=== PATIENT | male | born 1960 | race Caucasian/White ===

== ENCOUNTER 2019-06-13 16:27 | Inpatient (IN) ==
[2019-06-13] MEDS ORDERED: HYDROmorphone INJ 1 MG/ML SYRINGE IV STA (17:03)
[2019-06-13] MEDS ORDERED: SODIUM CHLORIDE 0.9% 1000ML 1,000 ML IV ONE (17:03)
[2019-06-13] MEDS ORDERED: PROMETHAZINE 25 MG/51 ML BAG IV STA (17:03)
[2019-06-13 17:15] LABS: Basophils # (auto) 0.01 K/uL (0-0.2); Basophils % (auto) 0.1 %; Eosinophils # (auto) 0.02 K/uL (0-0.5); Eosinophils % (auto) 0.2 %; Hematocrit (blood only) 45.4 % (42-52); Hemoglobin 16.5 g/dL (14.0-18.0); Immature Granulocytes # (auto) 0.04 K/uL (0.00-0.02); Immature Granulocytes % (auto) 0.3 %; Lymphocytes # (auto) 0.74 K/uL (1.2-3.4); Lymphocytes % (auto) 5.8 %; Mean Corpuscular Hgb Conc 36.3 g/dL (32-36); Mean Corpuscular Volume 96.2 fL (80-100); Mean Platelet Volume 9.5 fL (7.4-10.4); Monocytes # (auto) 0.83 K/uL (0.11-0.59); Monocytes % (auto) 6.5 %; Neutrophils # (auto) 11.09 K/uL (1.4-6.5); Neutrophils % (auto) 87.1 %; Platelet Count 133 K/uL (130-400); RDW Coefficient of Variation 12.7 % (11.5-14.5); RDW Standard Deviation 44.3 fL (36.4-46.3); Red Blood Count 4.72 M/uL (4.7-6.1); White Blood Count 12.73 K/uL (4.8-10.8)
[2019-06-13 17:31] LABS: Albumin Level 4.3 gm/dl (3.4-5.0); BUN Creatinine Ratio 6.2 (10-20); Calcium 9.5 mg/dl (8.5-10.1); Creatinine Clr Calc Pharmacy 66.6 ml/min; Est GFR (African American) 56.3; Est GFR (Non-African American) 48.6; Magnesium 2.1 mg/dl (1.8-2.4); Potassium 3.4 mmol/L (3.5-5.1)
--- NOTE | 2019-06-13 17:33 | XRay Report ---
XR KUB/Abdomen 1 view CLINICAL HISTORY: RLQ pain n/v COMPARISON STUDY: No previous studies for comparison. FINDINGS: Postsurgical changes are present within the right upper quadrant. There is a nonspecific svetlana wel gas pattern with a fluid-filled mildly dilated left upper quadrant small bowel loop. There is equ ivocal mucosal edema at the level of the hepatic flexure. IMPRESSION: 1. Nonspecific bowel gas pattern 2. Dilated fluid-filled left upper quadrant small bowel loop 3. Equivocal mucosal edema within the colon at the level of the hepatic flexure Electronically signed by: Darrick Viera M.D. 06/13/2019 5:32 PM
[2019-06-13 17:34] LABS: Bilirubin,Total 1.3 mg/dl (0.2-1); Globulin 4.1 gm/dl (2.5-4.0); Total Protein 8.4 gm/dl (6.4-8.2)
--- NOTE | 2019-06-13 17:44 | Emergency Department Note ---
History of Present Illness General Chief Complaint: Abdominal Pain Stated Complaint: ABD PAIN, UNABLE TO HAVE BM History of Present Illness Maximum Pain Intensity: 4 This patient is a 58-year-old male presents to the emergency department complaining of a dull, aching abdominal pain for the last 2 days. He is also had nausea with several episodes of vomiting. His last bowel movement was loose and this morning. The patient has a history of carcinoid syndrome. He has had multiple surgeries on his abdomen. The patient also reports metastatic disease to the bone. He tried taking Dilaudid for the pain and Zofran for the nausea at home with no relief. The patient's oncology care is at [facility]. He is visiting to the area. Home Medications Home Medications Medication Instructions Recorded Confirmed Type Unknown Chemo Drugs 1 dose INJ DIRECTED 06/13/19 06/13/19 History alprazolam 1 mg PO HS PRN 06/13/19 06/13/19 History amlodipine 5 mg PO BID 06/13/19 06/13/19 History hydromorphone 4 mg PO Q6H PRN 06/13/19 06/13/19 History methylphenidate HCl 5 mg PO BID 06/13/19 06/13/19 History metoprolol tartrate 100 mg PO BID 06/13/19 06/13/19 History morphine 15 mg PO Q12H PRN 06/13/19 06/13/19 History ondansetron HCl [Zofran] 8 mg PO TID PRN 06/13/19 06/13/19 History pantoprazole 40 mg PO DAILY 06/13/19 06/13/19 History sertraline 100 mg PO DAILY 06/13/19 06/13/19 History Allergies Allergy/AdvReac Type Severity Reaction Status Date / Time hydrocodone Allergy Mild ITCHY Verified 06/13/19 17:29 AROUND NOSE Past Med/Surg History Social History Preferred Language: Nepali Feels Safe at Home: Yes Smoking Status: Former smoker Review of Systems A total of 10 systems reviewed and were otherwise negative Physical Exam Vital Signs: Vital Signs - 24 hr 06/13/19 16:35 06/13/19 18:23 06/13/19 19:00 Temperature 37.0 C Temperature Source Oral Pulse Rate 122 H 82 Pulse Rate [Apical ] 86 Pulse Rate from Sp O2 Sensor 83 Respiratory Rate 20 18 19 Respiratory Effort / Characteristics Non-Labored Non-Labored Respiratory Depth Normal Normal Blood Pressure 170/121 H 142/89 H Blood Pressure [Ri ght Arm] 127/87 Blood Pressure Christiane n 137 104 Blood Pressure Christiane n [Right Arm] 100 Blood Pressure Pos ition Sitting Pulse Oximetry 95 93 94 Oxygen Delivery Me thod Room Air Room Air Room Air Sepsis Recent Feve r Within 48 Hours No Sepsis New/Unexpla ined Change in Men edward Status No Sepsis Action Take n by Nursing No Action Required Constitutional: WD/WN, vitals as above Eyes: EOM intact bilaterally ENMT: Oral mucosa dry Neck: trachea midline Respiratory: normal respiratory effort, lungs clear to auscultation Cardiovascular: RRR, no murmur, no edema Gastrointestinal (Abdomen): Abdomen is soft. Bowel sounds hypoactive. Tenderness to palpation in the right lower quadrant. No guarding or rebound Tenderness Musculoskeletal: no cyanosis or clubbing, extremities motor strength 5/5 Skin: no rashes, warm and dry Neurologic: Alert and oriented x3. No focal motor deficits. Psychiatric: Acting appropriately Course Patient was seen and examined Vital signs including blood pressure were reviewed medications list was verified with patient Labs were obtained, and a saline lock was established The patient was ordered Dilaudid and Phenergan IV. He was also ordered IV fluids. Imaging was performed and reviewed Upon reevaluation, the patient was feeling better. We discussed his results. He voiced understanding. We discussed the plan. The case was discussed with general surgery in addition to the hospitalist service. They kindly agreed to evaluate the patient for likely inpatient management. The patient remained stable in the emergency department. Consultations Consultation #1: Dr. Gardiner Consultation #2: Dr. Castañeda Administered Medications Ioversol (Optiray 320 100ml) 93 ml IV ONCE PRN PRN Reason: Interaction Checking Stop: 06/17/19 19:37 Last Admin: 06/13/19 19:38 Dose: 93 ml Documented by: [id number] Discontinued Medications Hydromorphone HCl (Dilaudid) 1 mg IV NOW STA Stop: 06/13/19 17:04 Last Admin: 06/13/19 17:28 Dose: 1 mg Documented by: [id number] Promethazine HCl (Phenergan) 25 mg in 51 mls @ 204 mls/hr IV NOW STA Stop: 12/01/19 17:17 Last Infusion: 06/13/19 17:42 Dose: 0 mls/hr Documented by: [id number] Admin: 06/13/19 17:27 Dose: 204 mls/hr Documented by: [id number] Sodium Chloride (Nss 1000ml) 1,000 mls @ 999 mls/hr IV .Q1H1M ONE Stop: 06/13/19 18:03 Last Infusion: 06/13/19 18:28 Dose: 0 mls/hr Documented by: [id number] Admin: 06/13/19 17:27 Dose: 999 mls/hr Documented by: [id number] Medical Decision Making Differential Diagnosis Differential diagnosis: Acute on chronic pain, mass, bowel obstruction, infectious etiology, ureteral stone, among others Medical Records Attestation: I reviewed the patient's medical records. Home Medications Current Medication List: was personally reviewed by me Laboratory Data Attestation: I reviewed the patient's lab results. Result diagrams: 06/13/19 16:55 06/13/19 16:55 Lab Results 06/13/19 06/13/19 06/13/19 Range/Units 16:55 16:55 19:45 WBC 12.73 H (4.8-10.8) K/uL RBC 4.72 (4.7-6.1) M/uL Hgb 16.5 (14.0-18.0) g/dL Hct 45.4 (42-52) % MCV 96.2 (80-100) fL MCH 35.0 H (25-34) pg MCHC 36.3 H (32-36) g/dL RDW Std Deviation 44.3 (36.4-46.3) fL RDW Coeff of Alayna 12.7 (11.5-14.5) % Plt Count 133 (130-400) K/uL MPV 9.5 (7.4-10.4) fL Immature Gran % (Auto) 0.3 % Neut % (Auto) 87.1 % Lymph % (Auto) 5.8 % [place] % (Auto) 6.5 % Eos % (Auto) 0.2 % Baso % (Auto) 0.1 % Immature Gran # (Auto) 0.04 H (0.00-0.02) K/uL Neut # (Auto) 11.09 H (1.4-6.5) K/uL Lymph # (Auto) 0.74 L (1.2-3.4) K/uL [place] # (Auto) 0.83 H (0.11-0.59) K/uL Eos # (Auto) 0.02 (0-0.5) K/uL Baso # (Auto) 0.01 (0-0.2) K/uL Sodium 134 L (136-145) mmol/L Potassium 3.4 L (3.5-5.1) mmol/L Chloride 95 L (98-107) mmol/L Carbon Dioxide 27 (21-32) mmol/L Anion Gap 12.0 H (3-11) BUN 10 (7-18) mg/dl Creatinine 1.56 H (0.6-1.4) mg/dl Est Cr Clr Drug Dosing 66.6 ml/min Est GFR ( Amer) 56.3 Est GFR (Non-Af Amer) 48.6 BUN/Creatinine Ratio 6.2 L (10-20) Glucose 203 H (70-99) mg/dl Calcium 9.5 (8.5-10.1) mg/dl Magnesium 2.1 (1.8-2.4) mg/dl Total Bilirubin 1.3 H (0.2-1) mg/dl AST 51 H (15-37) U/L ALT 55 (12-78) U/L Alkaline Phosphatase 80 (45-117) U/L Total Protein 8.4 H (6.4-8.2) gm/dl Albumin 4.3 (3.4-5.0) gm/dl Globulin 4.1 H (2.5-4.0) gm/dl Albumin/Globulin Ratio 1.0 (0.9-2) Lipase 34 L (73-393) U/L Urine Color Dark Yellow Urine Appearance Clear (Clear) Urine pH 6.5 (4.5-7.5) Ur Specific [place] 1.015 (1.000-1.030) Urine Protein 1+ H (Negative) Urine Glucose (UA) Negative (Negative) Urine Ketones Negative (Negative) Urine Blood Negative (Negative) Urine Nitrite Negative (Negative) Urine Bilirubin Negative (Negative) Urine Urobilinogen Negative (Negative) Ur Leukocyte Esterase Trace H (Negative) Urine WBC (Auto) 5-10 H (0-5) /hpf Urine RBC (Auto) 0-4 (0-4) /hpf U Hyaline Cast (Auto) 10-30 H (0-5) /lpf U Epithel Cells (Auto) 20-30 H (0-5) /lpf Urine Bacteria (Auto) Negative (Negative) Imaging Data Attestation: I personally reviewed and interpreted this imaging study as follows: Radiologist's Impression: CT abdomen and pelvis with IV and oral contrast IMPRESSION: 1. Postsurgical changes of a right hemicolectomy with ileocolonic anastomosis 2. Small bowel obstructive pattern with a transition zone near at the level of the ileocolonic anastomosis. At this level, there is mild mesenteric nodularity with tethering of bowel loops. 3. Low volume ascites 4. No pneumatosis. No portal venous gas 5. Hepatic steatosis 6. No pathologic adenopathy 7. Nonspecific 17 mm lytic focus involving the T11 vertebral body demonstrating sclerotic margins 8. Mild prostatomegaly. Mild bladder wall thickening. Electronically signed by: Darrick Viera M.D. 06/13/2019 8:03 PM Dictated: 06/13/191947 Transcribed: 06/13/191947 Blood Pressure Blood Pressure Findings: Elevated blood pressure Blood Pressure Disposition: elevated BP felt to be situational MDM Narrative This patient is a 58-year-old male who presents to the emergency department with abdominal pain and vomiting. Longstanding history of carcinoid syndrome. On exam, he was not febrile. His bowel sounds was not rigid. Bowel sounds were hypoactive. He was mildly tender in the right lower abdomen. Labs reveal leukocytosis. Creatinine and LFTs are also slightly abnormal. This is likely due to his history. I had a high suspicion for obstruction given his multiple surgeries and malignancy. He does have a bowel obstruction at the ileocolonic anastomosis. The patient had good symptomatic relief in the emergency de partment. He does not appear toxic in nature. The case was discussed with general surgery. I then discussed the plan with the patient. He was comfortable being evaluated by the hospitalist for possible admission here as it does not seem that he needs surgical intervention at this time. Surgery recommended an NG tube if necessary. As the patient had good pain and nausea relief with 1 round of antibiotics, we will hold off at this time. Impression & Plan Small bowel obstruction, Carcinoid syndrome Discharge Plan Visit Data Chief Complaint: Abdominal Pain Stated Complaint: ABD PAIN, UNABLE TO HAVE BM ED Provider: Matt Moreno ED Midlevel Provider: Jeanette Benitez Discharge Problem: Small bowel obstruction, Carcinoid syndrome Patient Disposition: Being Evaluated by Hospitalist Condition: Fair Forms Stand Alone Forms: Call Back Authorization, [facility] Prescriptions Prescriptions: No Action alprazolam 1 mg Tablet 1 mg PO HS PRN (Reason: NEEDED) RF: 0 metoprolol tartrate 100 mg Tablet 100 mg PO BID RF: 0 ondansetron HCl [Zofran] 8 mg Tablet 8 mg PO TID PRN (Reason: Nausea) RF: 0 methylphenidate HCl 5 mg tablet 5 mg PO BID RF: 0 sertraline 100 mg Tablet 100 mg PO DAILY RF: 0 amlodipine 5 mg tablet 5 mg PO BID RF: 0 pantoprazole 40 mg tablet,delayed release (DR/EC) 40 mg PO DAILY RF: 0 morphine 15 mg Tablet Extended Release 15 mg PO Q12H PRN (Reason: Pain) RF: 0 hydromorphone 4 mg tablet 4 mg PO Q6H PRN (Reason: Pain) RF: 0 Unknown Chemo Drugs 1 dose INJ DIRECTED RF: 0 Referrals Referrals: PCP,NO [Primary Care Provider] -
[2019-06-13] MEDS ORDERED: IOVERSOL 100ml IV PRN (19:38)
[2019-06-13 20:05] LABS: Appearance Urine Clear (Clear); Bacteria Urine Automated Negative (Negative); Bilirubin Urine Negative (Negative); Blood Urine Negative (Negative); Color Urine Dark Yellow; Epithelial Cell Urine Auto 20-30 /lpf (0-5); Glucose Urine UA Negative (Negative); Ketones Urine Negative (Negative); Leukocyte Esterase Urine Trace (Negative); Nitrite Urine Negative (Negative); Protein Urine 1+ (Negative); RBC Urine Automated 0-4 /hpf (0-4); Specific Gravity Urine 1.015 (1.000-1.030); Urobilinogen Urine Negative (Negative); pH Urine 6.5 (4.5-7.5)
--- NOTE | 2019-06-13 20:05 | CT Scan Report ---
CT abd pelvis oral and IV con CLINICAL HISTORY: Right lower quadrant abdominal pain. Nausea and vomiting. Abnormal KUB. COMPARISON STUDY: KUB dated 06/13/2019 TECHNIQUE: The patient was scanned following administration of dilute oral contrast, and in a dynamic helical fashion during intravenous administration of 93 cc of Optiray 320 A dose lowering technique was utilized adhering to the principles of ALARA. CT DOSE: 1163.17 mGy.cm FINDINGS: Lower chest: There are mild dependent atelectatic changes Liver: There is hepatic steatosis. There is no ductal dilatation. No focal hepatic masses are visuali zed. Gallbladder: Not visualized and presumed surgically absent Spleen: Normal in size and attenuation. Pancreas: The pancreas appears atrophic. No masses are visualized. Adrenal glands: Unremarkable. Kidneys: There are bilateral renal cortical cysts. No solid renal masses are visualized. There is no hydronephrosis. Bowel: The patient appears be status post a right hemicolectomy with ileocolonic anastomosis. There a re dilated fluid-filled small bowel loops with a transition near or at the level of the ileocolonic a nastomosis. At this level there is mild mesenteric nodularity with tethering of the adjacent bowel lo ops. The colon is decompressed. The findings are consistent with a partial small bowel obstruction. T here is low volume ascites. There is no pneumatosis. There is no portal venous gas. Peritoneum: There is low volume ascites. There is mild nonspecific infiltration of the anterior perit sexton fat. There are small fat-containing inguinal hernias. Vasculature: The abdominal aorta is normal in course and caliber. Adenopathy: None. Pelvic viscera: There is mild prostatomegaly. There is bladder wall thickening. Skeletal structures: There is a nonspecific 17 mm lytic focus with sclerotic margins involving the T1 1 vertebral body. IMPRESSION: 1. Postsurgical changes of a right hemicolectomy with ileocolonic anastomosis 2. Small bowel obstructive pattern with a transition zone near at the level of the ileocolonic anasto mosis. At this level, there is mild mesenteric nodularity with tethering of bowel loops. 3. Low volume ascites 4. No pneumatosis. No portal venous gas 5. Hepatic steatosis 6. No pathologic adenopathy 7. Nonspecific 17 mm lytic focus involving the T11 vertebral body demonstrating sclerotic margins 8. Mild prostatomegaly. Mild bladder wall thickening. Electronically signed by: Darrick iVera M.D. 06/13/2019 8:03 PM
[2019-06-13] MEDS ORDERED: ONDANSETRON INJ 2 MG/ML 2 ML VIAL IV STA (22:13)
[2019-06-13] MEDS ORDERED: ONDANSETRON INJ 2 MG/ML 2 ML VIAL ONE (22:14)
[2019-06-13] MEDS ORDERED: ONDANSETRON INJ 2 MG/ML 2 ML VIAL IV PRN (22:42)
[2019-06-13] MEDS ORDERED: HYDROmorphone HCL 2 MG TAB PO PRN (22:42)
[2019-06-13] MEDS ORDERED: HYDROmorphone INJ 0.5 MG/0.5 ML SYR IV PRN (22:42)
[2019-06-13] MEDS ORDERED: METHYLPHENIDATE HCL 5 MG TABLET PO SCH (22:42)
[2019-06-13] MEDS ORDERED: ALPRAZolam 0.5 MG TABLET PO PRN (22:42)
[2019-06-13] MEDS ORDERED: ACETAMINOPHEN 325 MG TAB PO PRN (22:42)
[2019-06-13] MEDS: METOPROLOL TARTRATE 100 MG TAB PO SCH (23:43)
[2019-06-13] MEDS: AMLODIPINE BESYLATE 5 MG TAB PO SCH (23:45)
[2019-06-13] MEDS: NSS + 20MEQ KCL 20 MEQ/1,000 ML BAG IV SCH (23:51)
[2019-06-13] MEDS: METHYLPHENIDATE HCL 10 MG TABLET PO SCH (23:58)
--- NOTE | 2019-06-14 01:01 | History and Physical Report ---
DATE OF ADMISSION: 06/13/2019 CHIEF COMPLAINT: Abdominal pain. HISTORY OF PRESENT ILLNESS: This is a 58-year-old male with past medical history significant for carcinoid syndrome, history of small-bowel obstruction in the past, history of hypertension, chronic pain, GERD, depression, presents with abdominal pain. The patient is from [facility] and is visiting [place] [employer] for [employer] hunting and is staying at his brother's house. Since last midnight, he is having severe abdominal pain, mostly located in the right side. It got worse in the morning, was not getting better. Had several episodes of vomiting, vomitus contained food, and he had a small bowel movement in the morning around 6:00 a.m., but since then there is no bowel movement and has passed a small amount of gas, but not much and came to the ER and found to have small-bowel obstruction. He was diagnosed with carcinoid syndrome about 11 years ago in the ileum region status post surgery and also status post wedge resection of the liver and he is on chemo for the last 2 years with Sandostatin injections. He follows with [facility] oncology. Because of history, ER physician talked to the surgeon oracle adf consultant and since after fluids and pain medications symptoms improved, was decided to observe the patient in our hospital. If he does not improve and it gets worse, if requires surgery plan to transfer to [facility]. Currently, the patient says the pain is much improved, when he came in the pain was about 10/10 in severity, sharp pains, no radiation, but after the pain medication, the pain is much improved. He seems comfortable and hemodynamically stable. He had some headache earlier, but that has resolved. He gets dizziness when stands up. No blurred visions. No earache, no runny nose currently, no sore throat, no cough, no difficulty swallowing. No fever. Feels somewhat chilly. No chest pain. He gets shortness of breath once in a while. No blood in stools or black stools. Normal bladder movements. No burning micturition. Says the urine sometimes dark because of his chemo. No swelling in the legs, no rash. Otherwise is active and ambulates okay. ALLERGIES: HYDROCODONE. PAST MEDICAL HISTORY: As mentioned above. PAST SURGICAL HISTORY: Resection of the carcinoid cancer in his ileum and also wedge resection of the liver. MEDICATIONS: Alprazolam 1 mg p.o. at bedtime p.r.n., amlodipine 5 mg p.o. b.i.d., hydromorphone 4 mg p.o. q. 6 hours p.r.n., methylphenidate 5 mg p.o. b.i.d., metoprolol tartrate 100 mg p.o. b.i.d., morphine long acting 15 mg p.o. q. 12 hours p.r.n., Zofran 8 mg p.o. t.i.d. p.r.n., Protonix 40 mg p.o. daily, Zoloft 100 mg p.o. daily, chemo as directed. FAMILY HISTORY: Significant for father from complications of prostate cancer. Parents had dementia. SOCIAL HISTORY: Smoked for 12 years, but quit smoking in 1987. Alcohol occasional. No drug use. Lives with his . REVIEW OF SYSTEMS: As per HPI. Rest of review of systems negative. PHYSICAL EXAMINATION: GENERAL: The patient is obese, not in acute distress. VITAL SIGNS: Temperature 37, pulse 90, respiratory rate 16, blood pressure 133/78, oxygen 97% on room air. HEENT: No pallor, no icterus. Pupils equal, round, and reactive to light. NECK: No JVD, no neck masses, no carotid bruit. CARDIOVASCULAR: S1, S2 heard, regular rate and rhythm, no murmur, no gallop. RESPIRATORY SYSTEM: Normal AP diameter. No accessory muscle use. No wheezing, no crackles. ABDOMEN: Soft, bowel sounds sluggish, mild discomfort. No guarding, no rigidity, no rebound tenderness. Slightly distended. CENTRAL NERVOUS SYSTEM: Cranial nerves II-XII grossly intact. Nonfocal. EXTREMITIES: No edema, no erythema. LABORATORY DATA: WBC 12.7, hemoglobin 16.5, hematocrit 45.4, platelets 133. Sodium 134, potassium 3.4, chloride 95, bicarbonate 27, BUN 10, creatinine 1.5, serum glucose 203, calcium 9.5, magnesium 2.1, total bilirubin 1.3, AST 15, ALT 55, alkaline phosphatase 80, lipase 34. Urinalysis, leukocyte esterase positive. Urine drug screen negative. IMAGING DATA: KUB, nonspecific bowel gas pattern, dilated fluid-filled left upper quadrant small bowel loop, equivocal mucosal edema within the colon at the level of the hepatic flexure. CT scan of the abdomen and pelvis with oral and IV contrast shows post-surgical changes of the right hemicolectomy and ileocolonic anastomosis, small bowel obstructive pattern with a transition zone near the level of the ileocolonic anastomosis. At this level, there is mild mesenteric nodularity with tethering of the bowel loops, low volume ascites. No pneumatosis, no portal venous gas, no hepatic steatosis, no pathological adenopathy. Nonspecific 17-mm lytic focus involving T11 vertebral body, demonstrates sclerotic margins, mild prostatomegaly, mild bladder wall thickening. ASSESSMENT AND PLAN: This is a 58-year-old male who presents with abdominal pain and found to have small bowel obstruction. 1. Small-bowel obstruction, abdominal pain. History of carcinoid syndrome status post bowel surgery. Had a small-bowel obstruction in the past which resolved with conservative management. Surgery was notified by the ER and okayed for admission. We will treat conservatively. Currently symptoms seem to be getting better. We will continue with n.p.o., IV fluids, IV antiemetics, IV pain medicine p.r.n. and follow KUB in the a.m. Surgical consult for further recommendations. 2. History of carcinoid syndrome, status post bowel resection and also wedge resection of the liver. On chemo, follows with [facility]. 3. Hypertension. Continue his amlodipine and Lopressor with holding parameters. 4. Chronic pain. Continue his home p.o. hydromorphone and current IV Dilaudid p.r.n. 5. Gastroesophageal reflux disease. Continue Protonix. 6. Depression. Continue Zoloft. 7. Deep venous thrombosis prophylaxis, sequential compression devices. DISPOSITION: Admit to medical floor. Expect to discharge home and follow with his family doctor and his heme/onc. Level 1 full code. MTDD
[2019-06-14 05:26] LABS: Basophils # (auto) 0.01 K/uL (0-0.2); Basophils % (auto) 0.1 %; Eosinophils # (auto) 0.09 K/uL (0-0.5); Eosinophils % (auto) 1.3 %; Hemoglobin 13.7 g/dL (14.0-18.0); Immature Granulocytes # (auto) 0.01 K/uL (0.00-0.02); Immature Granulocytes % (auto) 0.1 %; Lymphocytes # (auto) 0.78 K/uL (1.2-3.4); Lymphocytes % (auto) 11.2 %; Mean Corpuscular Hgb Conc 34.3 g/dL (32-36); Mean Corpuscular Volume 99.3 fL (80-100); Mean Platelet Volume 9.3 fL (7.4-10.4); Monocytes # (auto) 1.33 K/uL (0.11-0.59); Monocytes % (auto) 19.1 %; Neutrophils # (auto) 4.75 K/uL (1.4-6.5); Neutrophils % (auto) 68.2 %; Platelet Count 128 K/uL (130-400); RDW Coefficient of Variation 12.8 % (11.5-14.5); Red Blood Count 4.03 M/uL (4.7-6.1); White Blood Count 6.97 K/uL (4.8-10.8)
[2019-06-14 05:48] LABS: BUN Creatinine Ratio 10.5 (10-20); Calcium 8.4 mg/dl (8.5-10.1); Creatinine Clr Calc Pharmacy 83.7 ml/min; Est GFR (African American) 75.8; Est GFR (Non-African American) 65.4; Magnesium 2.3 mg/dl (1.8-2.4); Potassium 3.2 mmol/L (3.5-5.1)
[2019-06-14 06:08] LABS: Estimated Average Glucose 140 mg/dl; Hemoglobin A1C 6.5 % (4.5-5.6)
[2019-06-14] MEDS ORDERED: POTASSIUM CHLORIDE 20 MEQ TABCR PO STA (06:48)
--- NOTE | 2019-06-14 08:10 | XRay Report ---
KUB HISTORY: Small bowel obstruction. Follow-up. COMPARISON: Abdomen and pelvis CT 06/13/2019. FINDINGS: Redemonstration of the mildly dilated gas and fluid-filled loops of small bowel. There is p ersistent gas within the nondistended colon. Suture material within the right upper quadrant consiste nt with prior bowel anastomosis. Residual contrast within the bladder from the recent CT examination. There is also oral contrast within the mildly distended small bowel. No renal calculi. No ureteral calculi. No pneumoperitoneum or pneumatosis. IMPRESSION: No significant change in the small bowel obstruction pattern. Electronically signed by: Aneesh Watts M.D. 06/14/2019 8:09 AM
[2019-06-14] MEDS: SERTRALINE HCL 100 MG TABLET PO SCH (08:48)
[2019-06-14] MEDS: METOPROLOL TARTRATE 100 MG TAB PO SCH ×2 (08:48→20:19)
[2019-06-14] MEDS: PANTOprazole 40 MG TAB PO SCH (08:48)
[2019-06-14] MEDS: AMLODIPINE BESYLATE 5 MG TAB PO SCH ×2 (08:48→20:19)
[2019-06-14] MEDS: METHYLPHENIDATE HCL 10 MG TABLET PO SCH ×2 (08:49→20:15)
[2019-06-14] MEDS: NSS + 20MEQ KCL 20 MEQ/1,000 ML BAG IV SCH ×2 (08:51→16:31)
[2019-06-14] MEDS ORDERED: POTASSIUM CHLORIDE / WTR 10 MEQ/100 ML PLCT IV ONE (09:26)
--- NOTE | 2019-06-14 10:03 | Surgery Consultation ---
Date of Consultation June 14, 2019 Assessment & Plan (1) Small bowel obstruction: This is a 58y M with a PMH of carcinoid syndrome, right hemicolectomy, and liver wedge resection who presents to the [facility] ED on 06/13/19 with abdominal pain and vomiting. Workup in the ED revealed findings concerning for small bowel obstruction, transition point around his ileocolonic anastomosis. The patient reports no BM since admission and multiple bouts of vomiting, last around midnight today. At this time would favor giving patient a trial of conservative management. Keep NPO with IVF. Would consider placing an NGT today should patient continue to have ongoing emesis. All of patient's care and surgeries over the last 11 years have been at [facility] in [place]. Should patient's condition deteriorate and he fails conservative measures would transfer patient to [place]. Patient is agreeable with this plan. We will continue to follow. Supervising Physician Co-Signing Physician Notes Patient seen and examined, labs and imaging reviewed, agree with above. 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 He has had similar episodes in the past but never required hospitalization. He is feeling a little better now may have passed some gas, but is still distended. We will attempt nonoperative management for the time being. Due to his significant disease burden he is not a good candidate for surgery. If he were to require any type of surgery it may be palliative in nature. Would also recommend transfer back to [facility] as all of his care is been there, he lives near there, and due to his carcinomatosis, chemotherapy, and carcinoid syndrome. History of Present Illness Attending Physician: Luz Maria Manzo MD History of Present Illness This is a 58y M with a PMH of carcinoid syndrome, HTN, h/o SBO, and h/o right hemicolectomy and liver wedge resection who presents to the [facility] ED on 06/13/19 with abdominal pain and vomiting. The patient is visiting the area from outside of [place] for hunting season. He arrived around 4:30pm Friday and ate some food and started feeling some abdominal pain. In the evening he drank some beers and had soup and his pain progressed. He tried to sleep it off, but his abdominal pain remained and was constant. He arrived to the ED yesterday for further evaluation. He describes constant pain, abdominal pressure, associated with multiple bouts of vomiting. He said in the past he has tried gas-ex to help relieve his symptoms, but being far from home he did not attempt this. He denies any gas or BM's since admission. In the ED a CT a/p was performed revealing small bowel obstruction with a transition zone near his ileocolonic anastomosis with some mild mesenteric nodularity with tethering of bowel loops. WBC 12.7. Patient reports that all of his care is at [facility] and he is currently on experimental drugs for his carcinoid. He normally has up to 10-12 bouts of diarrhea a day due to his carcinoid. Patient says that [facility] told him they would want to avoid any future abdominal surgeries on him. Allergies Allergy/AdvReac Type Severity Reaction Status Date / Time hydrocodone Allergy Mild ITCHY Verified 06/13/19 17:29 AROUND NOSE Home Medications Home Medications Medication Instructions Recorded Confirmed Type Unknown Chemo Drugs 1 dose INJ DIRECTED 06/13/19 06/13/19 History alprazolam 1 mg PO HS PRN 06/13/19 06/13/19 History amlodipine 5 mg PO BID 06/13/19 06/13/19 History hydromorphone 4 mg PO Q6H PRN 06/13/19 06/13/19 History methylphenidate HCl 5 mg PO BID 06/13/19 06/13/19 History metoprolol tartrate 100 mg PO BID 06/13/19 06/13/19 History morphine 15 mg PO Q12H PRN 06/13/19 06/13/19 History ondansetron HCl [Zofran] 8 mg PO TID PRN 06/13/19 06/13/19 History pantoprazole 40 mg PO DAILY 06/13/19 06/13/19 History sertraline 100 mg PO DAILY 06/13/19 06/13/19 History Patient History Social History Preferred Language: Bruneian Communication Ability: Effective Speech Language Pathology Assistant Required: No Beliefs That Will Affect Care: None Current Living Situation: Spouse Feels Safe at Home: Yes Safety Concerns: Feels Safe At This Time Smoking Status: Former smoker Tobacco Type: cigarettes ; Smoking End Date: 1987 ; Hx Alcohol Use: Yes Alcohol type: beer Hx Substance Use: No Review of Systems Constitutional: + fatigue Gastrointestinal: + abdominal pain (abdominal pain and pressure), + bloating, + nausea, + vomiting and + constipation Physical Exam Physical Exam: awake/alert Constitutional: well developed and well nourished; no acute distress Respiratory: normal respiratory effort Gastrointestinal (Abdomen): Inspection/Auscultation: + abdomen distended and + abdominal surgical scar (surgical scars from prior liver wedge resection upper abd and bowel resec.) Percussion/Palpation: + abdomen tender (generalized abdominal tenderness to palpation) Results & Data Vital Signs (Past 12 Hours) Vital Signs Temp Pulse Pulse Pulse Pulse Resp BP 06/14/19 07:11 36.7 C 74 16 06/13/19 23:50 83 06/13/19 22:35 37 C 67 16 06/13/19 22:16 98 H 18 131/83 06/13/19 22:00 111 H 17 177/101 H BP Pulse Ox 06/14/19 07:11 133/85 95 06/13/19 23:50 150/86 H 06/13/19 22:35 154/95 H 99 06/13/19 22:16 06/13/19 22:[address] abd pelvis oral and IV con CLINICAL HISTORY: Right lower quadrant abdominal pain. Nausea and vomiting. Abnormal KUB. COMPARISON STUDY: KUB dated 06/13/2019 TECHNIQUE: The patient was scanned following administration of dilute oral contrast, and in a dynamic helical fashion during intravenous administration of 93 cc of Optiray 320 A dose lowering technique was utilized adhering to the principles of ALARA. CT DOSE: 1163.17 mGy.cm FINDINGS: Lower chest: There are mild dependent atelectatic changes Liver: There is hepatic steatosis. There is no ductal dilatation. No focal hepatic masses are visualized. Gallbladder: Not visualized and presumed surgically absent Spleen: Normal in size and attenuation. Pancreas: The pancreas appears atrophic. No masses are visualized. Adrenal glands: Unremarkable. Kidneys: There are bilateral renal cortical cysts. No solid renal masses are visualized. There is no hydronephrosis. Bowel: The patient appears be status post a right hemicolectomy with ileocolonic anastomosis. There are dilated fluid-filled small bowel loops with a transition near or at the level of the ileocolonic anastomosis. At this level there is mild mesenteric nodularity with tethering of the adjacent bowel loops. The colon is decompressed. The findings are consistent with a partial small bowel obstruction. There is low volume ascites. There is no pneumatosis. There is no portal venous gas. Peritoneum: There is low volume ascites. There is mild nonspecific infiltration of the anterior peritoneal fat. There are small fat-containing inguinal hernias. Vasculature: The abdominal aorta is normal in course and caliber. Adenopathy: None. Pelvic viscera: There is mild prostatomegaly. There is bladder wall thickening. Skeletal structures: There is a nonspecific 17 mm lytic focus with sclerotic margins involving the T11 vertebral body. IMPRESSION: 1. Postsurgical changes of a right hemicolectomy with ileocolonic anastomosis 2. Small bowel obstructive pattern with a transition zone near at the level of the ileocolonic anastomosis. At this level, there is mild mesenteric nodularity with tethering of bowel loops. 3. Low volume ascites 4. No pneumatosis. No portal venous gas 5. Hepatic steatosis 6. No pathologic adenopathy 7. Nonspecific 17 mm lytic focus involving the T11 vertebral body demonstrating sclerotic margins 8. Mild prostatomegaly. Mild bladder wall thickening. Electronically signed by: Darrick Viera M.D. 06/13/2019 8:03 PM PG Care Time/CCT Total # of Minutes Spent Total Time Spent with Patient: Total time spent is greater than 50% in coordination of care (as documented) at patient's floor/unit and/or counseling patient:
[2019-06-14 13:01] LABS: BUN Creatinine Ratio 10.6 (10-20); Calcium 8.2 mg/dl (8.5-10.1); Creatinine Clr Calc Pharmacy 85.8 ml/min; Est GFR (African American) 78.1; Est GFR (Non-African American) 67.4; Potassium 3.5 mmol/L (3.5-5.1)
--- NOTE | 2019-06-14 14:41 | Hospitalist Progress Note ---
Date of Service June 14, 2019 Assessment & Plan (1) Carcinoid syndrome: (2) Small bowel obstruction: h/o carcinoid syndrome, multiple abdominal surgeries Also reports SBO in the past CT abd/pelvis show SBO Being managed conservatively Symptoms improving Currently NPO. Will start clears once symptoms continue to resolve and patient starts moving bowel or passing flatus Continue IVF for now (3) Hypertension: Controlled Continue home meds (4) Depression: Stable Continue home meds Subjective Patient seen and examined Reports abdominal distention is much improved, almost back to baseline Nausea has resolved. Still has mild right sided abdominal pain. Denied vomiting At the time of evaluation, had not moved bowel or passed flatus Denied any fevers, chills Review of Systems Review of Systems: All systems reviewed and unremarkable except for mentioned above. Physical Exam Physical Exam: General: Well nourished, well hydrated, no acute distress Eyes: PERRL, conjunctivae normal, EOM intact bilaterally ENMT: External ear and nose normal, oropharynx normal Neck: Normal visual inspection, no tracheal deviation, no swelling noted Respiratory: Normal respiratory effort, no respiratory distress, lungs clear to auscultation, no crackles and no wheezes Cardiovascular: Pulse is RRR. Heart Sounds: normal S1 and normal S2; no murmurs. Vessels: normal peripheral pulses Extremities: no pedal edema Gastrointestinal (Abdomen): Abdomen is mildly distended, soft, right lower quadrant tenderness, no guarding, no palpable hepatosplenomegaly, normal bowel sounds Musculoskeletal: No cyanosis or clubbing, all extremities motor strength 5/5 Genitourinary: No CVA tenderness Skin: No rash noted on gross inspection, No ulcers noted Neurologic: Alert and oriented x 3, No focal weakness, sensation grossly intact Psychiatric: Alert and oriented x 3, euthymic affect Results & Data Vital Signs (Past 12 Hours) Vital Signs Temp Pulse Resp BP Pulse Ox 06/14/19 07:11 36.7 C 74 16 133/85 95 Laboratory Results Abnormal lab results 06/13/19 06/14/19 06/14/19 Range/Units 19:45 04:55 04:55 RBC 4.03 L (4.7-6.1) M/uL Hgb 13.7 L (14.0-18.0) g/dL Hct 40.0 L (42-52) % Plt Count 128 L (130-400) K/uL Lymph # (Auto) 0.78 L (1.2-3.4) K/uL Gilchrist # (Auto) 1.33 H (0.11-0.59) K/uL Potassium 3.2 L (3.5-5.1) mmol/L Glucose 170 H (70-99) mg/dl Hemoglobin A1c (4.5-5.6) % Calcium 8.4 L (8.5-10.1) mg/dl Urine Protein 1+ H (Negative) Ur Leukocyte Esterase Trace H (Negative) Urine WBC (Auto) 5-10 H (0-5) /hpf U Hyaline Cast (Auto) 10-30 H (0-5) /lpf U Epithel Cells (Auto) 20-30 H (0-5) /lpf 06/14/19 06/14/19 Range/Units 04:55 12:04 RBC (4.7-6.1) M/uL Hgb (14.0-18.0) g/dL Hct (42-52) % Plt Count (130-400) K/uL Lymph # (Auto) (1.2-3.4) K/uL Gilchrist # (Auto) (0.11-0.59) K/uL Potassium (3.5-5.1) mmol/L Glucose 152 H (70-99) mg/dl Hemoglobin A1c 6.5 H (4.5-5.6) % Calcium 8.2 L (8.5-10.1) mg/dl Urine Protein (Negative) Ur Leukocyte Esterase (Negative) Urine WBC (Auto) (0-5) /hpf U Hyaline Cast (Auto) (0-5) /lpf U Epithel Cells (Auto) (0-5) /lpf
[2019-06-15] MEDS: NSS + 20MEQ KCL 20 MEQ/1,000 ML BAG IV SCH ×3 (01:46→09:53)
--- NOTE | 2019-06-15 08:10 | Surgery Progress Note ---
Date of Service June 15, 2019 Assessment & Plan (1) Small bowel obstruction: Patient's abdominal pain is overall improved, still has some mild tenderness on the right side Is having + bowel function, passing flatus and BM's Tolerating clears without nausea/vomiting Okay to advance diet slowly as patient tolerates Subjective Patient offers no complaints from overnight. Since we saw him yesterday he states he's been passing flatus and had about 7+ BM's, which is consistent with his regular bowel habits for him. He has been tolerating clears without nausea/vomiting. He feels less distended and overall his pain is much improved. Physical Exam Physical Exam: sleeping, but easily arousable and conversant Gastrointestinal (Abdomen): Inspection/Auscultation: + abdomen distended (improved from yesterday) Percussion/Palpation: + abdomen tender (mildly right sided abdomen) and abdomen soft Results & Data Vital Signs (Past 12 Hours) Vital Signs Temp Pulse Resp BP Pulse Ox 06/14/19 23:03 37.1 C 63 16 148/87 H 96 06/14/19 20:16 66 136/86 PG Care Time/CCT Total # of Minutes Spent Total Time Spent with Patient: Total time spent is greater than 50% in coordination of care (as documented) at patient's floor/unit and/or counseling patient:
[2019-06-15] MEDS: METOPROLOL TARTRATE 100 MG TAB PO SCH ×2 (08:45→20:45)
[2019-06-15] MEDS: SERTRALINE HCL 100 MG TABLET PO SCH (08:45)
[2019-06-15] MEDS: METHYLPHENIDATE HCL 10 MG TABLET PO SCH ×2 (08:45→20:44)
[2019-06-15] MEDS: PANTOprazole 40 MG TAB PO SCH (08:45)
[2019-06-15] MEDS: AMLODIPINE BESYLATE 5 MG TAB PO SCH ×2 (08:45→20:44)
[2019-06-15] MEDS: SODIUM CHLORIDE 0.9% 1000ML 1,000 ML IV SCH ×2 (12:13→20:45)
--- NOTE | 2019-06-15 12:49 | Hospitalist Progress Note ---
Date of Service June 15, 2019 Assessment & Plan (1) Carcinoid syndrome: (2) Small bowel obstruction: h/o carcinoid syndrome, multiple abdominal surgeries Also reports SBO in the past CT abd/pelvis show SBO Being managed conservatively Symptoms improving Currently on clears. Will continue to advance diet as tolerated to regular diet Continue IVF NSS at 100cc/h Hypokalemia resolved. Monitor If tolerating diet by tomorrow, may be discharged (3) Hypertension: Monitor BP Continue home meds (4) Depression: Stable Continue home meds Subjective Patient reports nausea and abdominal pain has resolved Had some bowel movement this AM Denied any fevers, chills. Denied any chest pain, cough, shortness of breath. Review of Systems Review of Systems: All systems reviewed and unremarkable except for mentioned above. Physical Exam Physical Exam: General: Well nourished, well hydrated, no acute distress Eyes: PERRL, conjunctivae normal, EOM intact bilaterally ENMT: External ear and nose normal, oropharynx normal Neck: Normal visual inspection, no tracheal deviation, no swelling noted Respiratory: Normal respiratory effort, no respiratory distress, lungs clear to auscultation, no crackles and no wheezes Cardiovascular: Pulse is RRR. S1 S2 no pedal edema Gastrointestinal (Abdomen): Abdomen is soft, not distended, not tender, no guarding, no palpable hepatosplenomegaly, normal bowel sounds Musculoskeletal: No cyanosis or clubbing, all extremities motor strength 5/5 Neurologic: Alert and oriented x 3, No focal weakness, sensation grossly intact Psychiatric: Alert and oriented x 3, euthymic affect Results & Data Laboratory Results Laboratory Results - last 24 hr 06/14/19 18:11 POC Glucose 144 H
[2019-06-16] MEDS: SODIUM CHLORIDE 0.9% 1000ML 1,000 ML IV SCH (06:46)
[2019-06-16 07:18] LABS: Hemoglobin 13.3 g/dL (14.0-18.0); Mean Platelet Volume 9.4 fL (7.4-10.4); Platelet Count 112 K/uL (130-400); RDW Coefficient of Variation 12.5 % (11.5-14.5); RDW Standard Deviation 45.4 fL (36.4-46.3)
[2019-06-16 07:48] LABS: Calcium 7.9 mg/dl (8.5-10.1); Creatinine Clr Calc Pharmacy 105.2 ml/min; Est GFR (Non-African American) 86.3; Potassium 3.2 mmol/L (3.5-5.1)
[2019-06-16] MEDS: AMLODIPINE BESYLATE 5 MG TAB PO SCH (08:52)
[2019-06-16] MEDS: PANTOprazole 40 MG TAB PO SCH (08:52)
[2019-06-16] MEDS: SERTRALINE HCL 100 MG TABLET PO SCH (08:52)
[2019-06-16] MEDS: METOPROLOL TARTRATE 100 MG TAB PO SCH (08:53)
[2019-06-16] MEDS: METHYLPHENIDATE HCL 10 MG TABLET PO SCH (08:56)
--- NOTE | 2019-06-16 09:13 | Surgery Progress Note ---
Date of Service June 16, 2019 Assessment & Plan (1) Small bowel obstruction: Patient tolerating regular diet without nausea/vomiting Abdominal pain/bloat much improved Okay for discharge from surgical standpoint pending medicine clearance Subjective Patient states he feels good. Finished his whole breakfast tray this AM of regular diet. Passing BM's and gas. Physical Exam Physical Exam: awake/alert Results & Data Vital Signs (Past 12 Hours) Vital Signs Temp Pulse Resp BP BP Pulse Ox 06/16/19 08:57 67 06/16/19 07:10 36.6 C 56 L 19 135/77 97 06/15/19 23:24 36.9 C 59 L 16 135/76 97 PG Care Time/CCT Total # of Minutes Spent Total Time Spent with Patient: Total time spent is greater than 50% in coordination of care (as documented) at patient's floor/unit and/or counseling patient:
[2019-06-16] MEDS ORDERED: POTASSIUM CHLORIDE 20 MEQ TABCR PO ONE (10:15)
--- NOTE | 2019-06-16 12:52 | Hospitalist Progress Note ---
Date of Service June 16, 2019 Assessment & Plan (1) Carcinoid syndrome: (2) Small bowel obstruction: Small bowel obstruction H/O Carcinoid syndrome, multiple abdominal surgeries H/O recurrent small bowel obstruction --CT ABD:Postsurgical changes of a right hemicolectomy with ileocolonic anastomosis. Small bowel obstructive pattern with a transition zone near at the level of the ileocolonic anastomosis. At this level, there is mild mesenteric nodularity with tethering of bowel loops. Low volume ascites. No pneumatosis. No portal venous gas. Hepatic steatosis. No pathologic adenopathy. Nonspecific 17 mm lytic focus involving the T11 vertebral body demonstrating sclerotic margins. Mild prostatomegaly. Mild bladder wall thickening. --Resolved with conservative management --Received IV fluids --Tolerated regular diet --Appreciate surgery input Hypokalemia Replace and monitor electrodes as needed (3) Hypertension: Blood pressure is stable Continue home medications (4) Depression: Stable Continue home meds CODE STATUS Full code Disposition Plan to discharge home today Subjective Patient is seen and examined at bedside Doing well this morning Tolerating diet, had bowel movement Denies any nausea, vomiting, abdominal pain, chest pain, shortness of breath Eager to get discharged Offers no other complaints Review of Systems Review of Systems: All systems reviewed & are unremarkable except as noted in HPI & below Physical Exam Physical Exam: Physical Exam: Vitals signs as noted above General Appearance:Moderately built and nourished, no apparent distress Head: normocephalic, Atraumatic Eyes: normal inspection, EOMI Neck: supple, Trachea midline Respiratory/Chest: Normal breath sounds, CTA Cardiovascular: S1, S2, No murmur Abdomen/GI:Soft, Non tender, +Protuberant, no guarding/rigidity, Bowel sounds present Extremities/Musculoskelatal:normal inspection, no edema Neurologic/Psych:AAOX3, grossly no focal neurological deficits Skin: normal color, warm Results & Data Vital Signs (Past 12 Hours) Vital Signs Temp Pulse Resp BP Pulse Ox 06/16/19 08:57 67 06/16/19 07:10 36.6 C 56 L 19 135/77 97 Laboratory Results Short CBC 06/16/19 Range/Units 06:50 WBC 6.30 (4.8-10.8) K/uL Hgb 13.3 L (14.0-18.0) g/dL Hct 38.0 L (42-52) % Plt Count 112 L (130-400) K/uL BMP 06/16/19 06:50 Sodium 137 Potassium 3.2 L Chloride 107 Carbon Dioxide 25 BUN 10 Creatinine 0.97 Glucose 149 H Calcium 7.9 L
--- NOTE | 2019-06-16 13:12 | Discharge Summary ---
Date of Service June 16, 2019 Admission HPI Per Admitting Provider CHIEF COMPLAINT: Abdominal pain. HISTORY OF PRESENT ILLNESS: This is a 58-year-old male with past medical history significant for carcinoid syndrome, history of small-bowel obstruction in the past, history of hypertension, chronic pain, GERD, depression, presents with abdominal pain. The patient is from [facility] and is visiting [place] for [employer] hunting and is staying at his brother's house. Since last midnight, he is having severe abdominal pain, mostly located in the right side. It got worse in the morning, was not getting better. Had several episodes of vomiting, vomitus contained food, and he had a small bowel movement in the morning around 6:00 a.m., but since then there is no bowel movement and has passed a small amount of gas, but not much and came to the ER and found to have small-bowel obstruction. He was diagnosed with carcinoid syndrome about 11 years ago in the ileum region status post surgery and also status post wedge resection of the liver and he is on chemo for the last 2 years with Sandostatin injections. He follows with [facility] oncology. Because of history, ER physician talked to the surgeon marketing content specialist and since after fluids and pain medications symptoms improved, was decided to observe the patient in our hospital. If he does not improve and it gets worse, if requires surgery plan to transfer to [facility]. Currently, the patient says the pain is much improved, when he came in the pain was about 10/10 in severity, sharp pains, no radiation, but after the pain medication, the pain is much improved. He seems comfortable and hemodynamically stable. He had some headache earlier, but that has resolved. He gets dizziness when stands up. No blurred visions. No earache, no runny nose currently, no sore throat, no cough, no difficulty swallowing. No fever. Feels somewhat chilly. No chest pain. He gets shortness of breath once in a while. No blood in stools or black stools. Normal bladder movements. No burning micturition. Says the urine sometimes dark because of his chemo. No swelling in the legs, no rash. Otherwise is active and ambulates okay. Admission Exam Per Admitting Provider PHYSICAL EXAMINATION: GENERAL: The patient is obese, not in acute distress. VITAL SIGNS: Temperature 37, pulse 90, respiratory rate 16, blood pressure 133/78, oxygen 97% on room air. HEENT: No pallor, no icterus. Pupils equal, round, and reactive to light. NECK: No JVD, no neck masses, no carotid bruit. CARDIOVASCULAR: S1, S2 heard, regular rate and rhythm, no murmur, no gallop. RESPIRATORY SYSTEM: Normal AP diameter. No accessory muscle use. No wheezing, no crackles. ABDOMEN: Soft, bowel sounds sluggish, mild discomfort. No guarding, no rigidity, no rebound tenderness. Slightly distended. CENTRAL NERVOUS SYSTEM: Cranial nerves II-XII grossly intact. Nonfocal. EXTREMITIES: No edema, no erythema. Principal Diagnosis Small bowel obstruction Discharge Data Allergies Allergy/AdvReac Type Severity Reaction Status Date / Time hydrocodone Allergy Mild ITCHY Verified 06/13/19 17:29 AROUND NOSE Consultations 06/13/19 20:58 ED Decision to Admit Stat 06/14/19 08:00 Consult General Surgery Routine Procedures Performed CT ABD:Postsurgical changes of a right hemicolectomy with ileocolonic anasto mosis. Small bowel obstructive pattern with a transition zone near at the level of the ileocolonic anastomosis. At this level, there is mild mesenteric nodularity with tethering of bowel loops. Low volume ascites. No pneumatosis. No portal venous gas. Hepatic steatosis. No pathologic adenopathy. Nonspecific 17 mm lytic focus involving the T11 vertebral body demonstrating sclerotic margins. Mild prostatomegaly. Mild bladder wall thickening. Ordered Studies 06/13/19 17:03 CT abd pelvis oral and IV con Stat Hospital Course (1) Carcinoid syndrome: (2) Small bowel obstruction: Small bowel obstruction H/O Carcinoid syndrome, multiple abdominal surgeries H/O recurrent small bowel obstruction --CT ABD:Postsurgical changes of a right hemicolectomy with ileocolonic anastomosis. Small bowel obstructive pattern with a transition zone near at the level of the ileocolonic anastomosis. At this level, there is mild mesenteric nodularity with tethering of bowel loops. Low volume ascites. No pneumatosis. No portal venous gas. Hepatic steatosis. No pathologic adenopathy. Nonspecific 17 mm lytic focus involving the T11 vertebral body demonstrating sclerotic margins. Mild prostatomegaly. Mild bladder wall thickening. --Resolved with conservative management --Received IV fluids --Tolerated regular diet --Appreciate surgery input Hypokalemia Replace and monitor electrodes as needed (3) Hypertension: Blood pressure is stable Continue home medications (4) Depression: Stable Continue home meds CODE STATUS Full code Disposition Plan to discharge home today Total Time Total Time Spent Total Time Spent (In Minutes): 38 minutes Total Time Includes: Examination of the Patient, Discharge Planning, Medication Reconciliation, Communication With Other Providers and Other Discharge Plan Discharge Items Patient Disposition: Home - Self-Care Reason For Visit: ABDOMINAL PAIN Discharge Diagnosis: Small bowel obstruction Condition on Discharge: Fair Activity: Resume your previous activity Exercise/Sports: Gradually increase as tolerated Non-emergency contact: Primary Care Provider Call non-emergency contact if: you have any medication questions, your symptoms worsen, your pain is not controlled, your pain is worsening, your pain is unusual for you, your pain is concerning for you and you have a fever Follow-up/Referrals: PCP,NO [Primary Care Provider] - Diet: Heart Healthy and Low Fiber Addtl Attending Provider Instructions: Follow-up with your primary care physician in 1 week as advised Minimize pain medication use as able, as they can contribute to slowing your bowel movement and cause obstruction eventually. Seek immediate medical attention if your symptoms reoccur or worsen Pending Studies at Discharge: No Stand-Alone Forms: Call Back Authorization, [facility] [employer], Opioid Pain Management, Smoking Cessation Medications and DC Order Prescriptions: Continued alprazolam 1 mg Tablet 1 mg PO HS PRN (Reason: NEEDED) RF: 0 metoprolol tartrate 100 mg Tablet 100 mg PO BID RF: 0 ondansetron HCl [Zofran] 8 mg Tablet 8 mg PO TID PRN (Reason: Nausea) RF: 0 methylphenidate HCl 5 mg tablet 5 mg PO BID RF: 0 sertraline 100 mg Tablet 100 mg PO DAILY RF: 0 amlodipine 5 mg tablet 5 mg PO BID RF: 0 pantoprazole 40 mg tablet,delayed release (DR/EC) 40 mg PO DAILY RF: 0 morphine 15 mg Tablet Extended Release 15 mg PO Q12H PRN (Reason: Pain) RF: 0 hydromorphone 4 mg tablet 4 mg PO Q6H PRN (Reason: Pain) RF: 0 Unknown Chemo Drugs 1 dose INJ DIRECTED RF: 0 Discharge Orders: Discharge Order (Routine); Ordered 06/16/19 Ordered By: Gutierrez Ryan/Other Patient Handouts: DVT, Diabetes Type 2 Coping, Diabetes Healthy Meals, Diabetes Meal Planning, A1C Admission Data Admit Date/Time: 06/13/19 21:28 Attending Provider: Gutierrez Butt Admit Provider: Michael Castañeda Primary Care Provider: PCP,NO Other Providers: Kenney Gardiner ; Ammy Pennington ; Michael Castañeda Other Interventions: Discharge Summary Assessment (RN) Last Done: 06/16/19 13:14 DC Date/Time DO NOT enter until pt leaves facility: 06/16/19 14:02
== END 2019-06-16 14:02 | disposition home or self-care (01) | DRG 644 ==
LOC: ED 16:27 → SUATTDRO 21:28 → 3W 21:28